=== PATIENT | male | born 1970 | race Caucasian/White ===

== ENCOUNTER 2023-08-03 15:08 | Inpatient (IN) ==
--- NOTE | 2023-08-03 15:20 | Emergency Department Note ---
Impression & Plan Seizure, Acute alcohol intoxication, Acute encephalopathy, Stroke-like symptoms ED Provider Note Name: GWYN SAGE Age: 53 Sex: Male Arrives Via: Ambulance Informant: Brother and EMS. Patient encephalopathic unable to give history ED Provider: Yamil Sullivan MD Chief Complaint: Altered mental status Impression: As per impressions above Medical Decision Makin-year-old gentleman with reportedly no past medical history arrives for evaluation of acute altered mental status. Patient was sitting watching football game at roughly 2:15 PM with brother and friends when he had sudden episode of staring off and altered mental status. Through multiple discussions with brother and those with him it sounds like he had a somewhat syncopal event as he stared off with right-sided weakness and then some twitching of his neck and possibly left upper extremity. EMS arrived and noted patient having seizure-like activity for which she was given 2 rounds of Versed. Patient was quite encephalopathic and at times laughing loudly and route to ER. On my evaluation on his arrival I concern for stroke given complete right-sided flaccidity looking to the left though then did develop beating horizontal nystagmus and slight twitching of the neck muscles and head. He was given IV Ativan 1 mg x [address] scan as a stroke alert. CTs were able to be obtained to take some time though given encephalopathy of patient. On return from CT patient is now moving right arm he continues to be encephalopathic with some slurred speech but is answering some questions. Over the next 2 hours extensive discussions with neurology, radiology, family and reevaluations of patient's were had. During this time patient was able to maintain his airway with some nasal cannula O2 and had no large focal neurologic deficits appreciated following return from CT scan. Unfortunately though given encephalopathy it is very difficult to get a good picture of what exactly underlying NIH score is. Teleneurologist felt that at least discussion of TNK should be had despite unclear if patient truly having stroke. I had a very long and in-depth discussion with the brother as well as [id number] and friend who are at bedside. Following this they feel that they would not want to do TNKase given the risks of bleeding and unclear if he is actually having a stroke. I did mention that I felt that the encephalopathy itself is not due to a stroke given he is intoxicated, has Versed and Ativan on board as well as having received 50 mg IV Benadryl following contrast reaction. They are also aware that there is the possibility that has meds wear off and encephalopathy hopefully improves that a slight deficit could be seen, which at that point would be too late to be considering TNKase. They still would like to avoid thrombolytic given the risks with unclear benefits at this time for this patient. About an hour post CT scan patient broke out in diffuse hives. He is protecting airway there is no evidence of anaphylaxis. He was given IV Benadryl and IV Decadron with good result. Delays: there were several delays to getting CT scan primarily though issue was patient was unable to be still did have seizure-like activity, and required some further IV Ativan just to get scans done. He also had to be tied down to CT just to get a Noncon CT which required several scans just to get a clean view. Furthermore the history was quite difficult to get as well further delaying imaging and processing patient's illness. I am suspicious that the primary issue may have been syncope with seizure due to sitting up though primary seizure difficult to exclude at this time. 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 In the setting of intoxication, IV Versed as well as some sort of insult to the brain from the event he had an encephalopathic reaction. He is not significantly hypertensive. He has no fever and he has no nuchal rigidity based on exam though will note he is encephalopathic. To get LP would require likely intubation given he is unable to stay still and I again do not feel that this is consistent with meningitis or infection at this time. There was discussion of getting an emergent CT MRI. Unfortunately patient is too encephalopathic to stay still and I am very hesitant to further sedate him given his body habitus and already requiring some nasal cannula O2 to keep oxygenated. There was further discussion of intubating him to get MRI however at that point it would be very difficult to see if there is any underlying seizure activity, not precluding we to even be able to get the MRI done in time to be within the window given the multiple other issues going on. Triage/Nursing Notes reviewed by Me Differential:Infection, dehydration, metabolic abnormality, hypo/hyperglycemia, electrolyte disturbance, anemia, hypoxia, cardiac sources, intracerebral event, toxicologic, neurologic, as well as other pathologies. Vital Signs: reviewed and remarkable for no significant abnormalities Interventions: Ativan 1 mg IV x 2, Keppra 40 mg/kg IV, normal saline infusion Labs:ED labs Reviewed by me and remarkable for no significant abnormalities Imaging: CT of the head Noncon as per my informal interpretation Motion degraded. No clear evidence of intracranial hemorrhage or mass effect. Radiologist directly confirms he does not feel there is any underlying bleed though caveat of there is some motion degradation. CT of the head and neck angiography no evidence of acute occlusion or dissection appreciated. EKG:As per my interpretation. Indication stroke symptoms. Normal sinus rhythm 93 bpm QTc 455. There is no ectopy nor ischemia. There are no previous EKGs for comparison. Cardiac/Tele Monitoring: Cardiac Monitoring: An Order was placed for continuous cardiac monitoring. The monitor shows a rate of 90 with a normal sinus rhythm. Consults:Dr Loyd of radiology we specifically discussed scans and findings and symptoms. Stroke neurologist Dr. Perera. [phone] Dr. Bundy of [facility] service evaluated patient recommended for further management Dr. Arguello of [facility] evaled and agree with plan for hospitalization in ICU for close monitoring Plan: Disposition:Hospitalization. Condition: Fair History of Present Illness: 53-year-old gentleman arrives for evaluation of altered mental status. Patient was at the stadium for the [employer] game with family and friends when he developed increasing confusion looking off into the distance and developed sudden onset right arm weakness. Patient slumped over in his chair. EMS contacted. Shortly after EMS arrival patient increasing agitated laughing and altered. He had a episode of altered mental status where his entire body stiffened his eyes went upwards and his head started shaking. He was given 2 mg IV Versed x 2 for this with resolution. Arrives to the ER for further evaluation. Per brother this probably occurred around 2:15 PM. There is no past medical history known about the patient but brother believes he has no significant issues. Past Medical History:According to brother no significant past medical history that he is aware of. Home Medications:No reported daily medications Allergies:No known drug allergies Vitals:Blood Pressure: 127/85, Pulse 98, RR 43, T 36.9C, O2 92% on RA Physical Exam: GENERAL: Patient is altered appearing and in mild distress. Patient laughing confused. RESPIRATORY: No dyspnea. Clear to auscultation and equal bilaterally. CARDIOVASCULAR: Regular rate and rhythm.No murmur appreciated. GASTROINTESTINAL: Abdomen soft, non-tender, no peritonitis. EXTREMITIES: Normal motion all extremities, no cyanosis, no edema. NEUROLOGIC: Altered and encephalopathic. Patient looking to the left with mild horizontal nystagmus noted. Not following commands. Protecting airway. Complete flaccidity of the right arm unable to assess legs is not following command but seems to withdraw to pain is moving left arm. No facial weakness appreciated. Difficult to fully examine cranial nerves SKIN: No rash, no jaundice, no diaphoresis. GCS: 13 -not following commands making grunting noises ED Course: Times/Reassessments: Many repeat evaluations and bedside management of patient throughout his stay. Some malhotra times as below 3:15 PM: Asked by nursing to evaluate patient due to seizure in ambulance. 3:19 PM: I requested stroke alert given history from patient's brother. Delay to getting CT secondary to active patient movement confusion and not following directions and then seizure-like activity vs agitation within CT requiring Ativan 3:31 PM per my read no clear evidence of intracranial hemorrhage though some motion artifact noted. 3:32 [address] agitation [address] CT 1 mg IV Ativan ordered 3:33 PM requested stroke neurology be contacted 3:40 PM patient with another episode of left arm spasm looking to the left and confusion. Given second milligram IV Ativan. And then right arm noted to start working. 3:42 PM stroke neurology responded. Given findings TNKase not indicated however will evaluate for further management 3:48 PM evaluated patient in A1. He is now awake moderately somnolent but able to move all extremities. Questionable paresthesia over the right face. No further seizure-like activity. Responsive. 4:[address] head negative. 4:34 PM Tele Neurologist logged in for evaluation. 4:45 PM teleneurologist requesting discussion with radiologist. Radiologist sent contact info. 4:48 PM radiologist feels this is artifact not any evidence of bleed. 5:12 PM teleneurologist requests I discussed further with family possibly giving patient TNKase. 5:20 PM extensive family discussion and they agree avoiding TNKase after discussing risks, benefits, etc. at length. Critical Care: I have personally spent 150 minutes of critical care time in the direct management of this patient. Acute strokelike symptoms, stroke alert activation, with active seizure requiring management consider of thrombolytics. This was a life/limb threatening event. This 150 minutes is in excess of all separately billable procedures. 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 Beliefs That Will Affect Care: None Current Living Situation: Alone Other Information That Helps Us Care for You: No Feels Safe at Home: Yes Assistive Devices: None Allergies Allergies Allergy/AdvReac Type Severity Reaction Status Date / Time orange Allergy Hives Verified 08/03/23 16:03 Home Meds Home Medications Medication Instructions Recorded Confirmed No Known Home Medications 08/03/23 08/03/23 Results & Data (ED) Vital Signs Vital Signs - 24 hr 08/03/23 15:15 08/03/23 15:18 08/03/23 16:00 Temperature 36.9 C Temperature Source Temporal Artery Scan Pulse Rate 102 H Pulse Rate [Apical] 98 H 87 Pulse Rate from SpO2 Sensor Pulse Rhythm [Apical] Regular Pulse Strength [Apical] Normal Respiratory Rate 22 43 H 28 H Respiratory Effort / Characteristics Non-Labored Spontaneous Non-Labored Spontaneous Non-Labored Respiratory Depth Normal Normal Normal Respiratory Pattern Regular Regular Blood Pressure 127/85 Blood Pressure [Left Arm] 127/85 108/82 Blood Pressure Mean 99 Blood Pressure Mean [Left Arm] 99 90 Blood Pressure Position [Left Arm] Lying Pulse Oximetry 91 92 93 Oxygen Delivery Method Room Air Room Air Nasal Cannula Oxygen Flow Rate 4 Sepsis Recent Fever Within 48 Hours No Sepsis New/Unexplained Change in Mental Status N/A Sepsis Action Taken by Nursing No Action Required 08/03/23 16:10 08/03/23 16:31 08/03/23 17:07 Temperature Temperature Source Pulse Rate 90 86 Pulse Rate [Apical] Pulse Rate from SpO2 Sensor 91 H Pulse Rhythm [Apical] Pulse Strength [Apical] Respiratory Rate 21 Respiratory Effort / Characteristics Respiratory Depth Respiratory Pattern Blood Pressure 114/87 Blood Pressure [Left Arm] Blood Pressure Mean 96 Blood Pressure Mean [Left Arm] Blood Pressure Position [Left Arm] Pulse Oximetry 94 Oxygen Delivery Method Nasal Cannula Nasal Cannula Oxygen Flow Rate 3 2 Sepsis Recent Fever Within 48 Hours Sepsis New/Unexplained Change in Mental Status Sepsis Action Taken by Nursing 08/03/23 17:10 08/03/23 17:21 08/03/23 17:30 Temperature Temperature Source Pulse Rate 79 87 86 Pulse Rate [Apical] Pulse Rate from SpO2 Sensor 79 87 86 Pulse Rhythm [Apical] Pulse Strength [Apical] Respiratory Rate 21 18 21 Respiratory Effort / Characteristics Respiratory Depth Respiratory Pattern Blood Pressure 97/71 L 113/81 134/90 Blood Pressure [Left Arm] Blood Pressure Mean 79 91 104 Blood Pressure Mean [Left Arm] Blood Pressure Position [Left Arm] Pulse Oximetry 98 97 97 Oxygen Delivery Method Nasal Cannula Nasal Cannula Nasal Cannula Oxygen Flow Rate 2 2 2 Sepsis Recent Fever Within 48 Hours Sepsis New/Unexplained Change in Mental Status Sepsis Action Taken by Nursing 08/03/23 18:00 08/03/23 18:00 Temperature Temperature Source Pulse Rate 77 Pulse Rate [Apical] 77 Pulse Rate from SpO2 Sensor 77 Pulse Rhythm [Apical] Pulse Strength [Apical] Respiratory Rate 19 18 Respiratory Effort / Characteristics Non-Labored Spontaneous Respiratory Depth Normal Respiratory Pattern Blood Pressure 94/68 L Blood Pressure [Left Arm] 94/68 L Blood Pressure Mean 76 Blood Pressure Mean [Left Arm] 76 Blood Pressure Position [Left Arm] Semi-fowlers Pulse Oximetry 95 98 Oxygen Delivery Method Room Air Nasal Cannula Oxygen Flow Rate 2 Sepsis Recent Fever Within 48 Hours Sepsis New/Unexplained Change in Mental Status Sepsis Action Taken by Nursing Laboratory Data 08/04/23 09:14 08/04/23 09:14 Lab Results 08/03/23 08/03/23 08/03/23 Range/Units 15:15 15:20 15:20 WBC 5.40 (4.8-10.8) K/ul RBC 5.21 (4.70-6.10) M/uL Hgb 15.3 (14.0-18.0) g/dl POC Hgb (14.0-18.0) g/dl Hct 45.6 (42.0-52.0) % POC Hct (42-52) % MCV 87.5 (80.0-100.0) fL MCH 29.4 (25.0-34.0) pg MCHC 33.6 (32.0-36.0) g/dL RDW Std Deviation 42.7 (36.4-46.3) fL RDW Coeff of Heri 13.3 (11.5-14.5) % Plt Count 303 (130-400) K/uL MPV 9.9 (9.4-12.4) fL Immature Gran % (Auto) 1.1 % Neut % (Auto) 58.9 % Lymph % (Auto) 31.3 % [place] % (Auto) 5.6 % Eos % (Auto) 2.0 % Baso % (Auto) 1.1 % Neut # (Auto) 3.18 (1.40-6.50) K/uL Lymph # (Auto) 1.69 (1.20-3.40) K/uL [place] # (Auto) 0.30 (0.11-0.59) K/uL Eos # (Auto) 0.11 (0.00-0.50) K/uL Baso # (Auto) 0.06 (0.00-0.20) K/uL Immature Gran # (Auto) 0.06 (0.01-0.20) K/uL PT INR APTT PTT Ratio POC Sodium (135-144) mmol/L Sodium 142 (136-145) mmol/L POC Potassium (3.3-5.0) mmol/L Potassium 4.7 (3.5-5.1) mmol/L POC Chloride (101-112) mmol/L Chloride 109 H (98-107) mmol/L Carbon Dioxide 25 (21-32) mmol/L POC Total CO2 (24-31) mmol/L Anion Gap 8 (3-11) POC Anion Gap (16-25) mmol/L POC BUN (7-18) mg/dl BUN 12 (6-23) mg/dl Creatinine 0.93 (0.6-1.4) mg/dl POC Creatinine (0.6-1.3) mg/dl Est Cr Clr Drug Dosing 106.2 ml/min Est GFR ( Amer) 109.8 ml/min Est GFR (Non-Af Amer) 94.7 ml/min BUN/Creatinine Ratio 12.9 (10-20) Glucose 106 H (70-99(Fasting)) mg/dl POC Glucose 102 H (70-99) mg/dl POC Glucose (other) (70-99) mg/dl Calcium 8.8 (8.6-10.3) mg/dl POC Ioniz Calcium Srini (1.12-1.32) mmol/l Magnesium 2.3 (1.7-2.4) mg/dl Total Bilirubin 0.3 (0.2-1.0) mg/dl AST 22 (13-39) U/L ALT 25 (7-52) U/L Alkaline Phosphatase 84 (34-104) U/L Troponin I High Sens 3.5 (0-20) pg/ml Total Protein 7.2 (6.0-8.3) gm/dl Albumin 4.5 (3.4-5.0) gm/dl Globulin 2.7 (2.5-4.0) gm/dl Albumin/Globulin Ratio 1.7 (0.9-2) Prolactin Cancelled 20.72 Urine Color Urine Appearance (Clear) Urine pH (4.5-7.5) Ur Specific [place] (1.000-1.030) Urine Protein (Negative) Urine Glucose (UA) (Negative) Urine Ketones (Negative) Urine Blood (Negative) Urine Nitrite (Negative) Urine Bilirubin (Negative) Urine Urobilinogen (Negative) Ur Leukocyte Esterase (Negative) Urine Opiates Screen (Neg) Ur Methadone, Qual (Neg) Urine Barbiturates (Neg) Ur Phencyclidine (PCP) (Neg) U Amphetamin/Meth Scrn (Neg) MDMA (Ecstasy) Screen (Neg) U Benzodiazepines Scrn (Neg) Ur Cocaine Metabolite (Neg) U Marijuana (THC) Screen (Neg) Ethyl Alcohol mg/dL 250.2 H (<10.0) mg/dl Blood Type Antibody Screen 08/03/23 08/03/23 08/03/23 Range/Units 15:24 15:25 16:11 WBC (4.8-10.8) K/ul RBC (4.70-6.10) M/uL Hgb (14.0-18.0) g/dl POC Hgb 15.0 (14.0-18.0) g/dl Hct (42.0-52.0) % POC Hct 44 (42-52) % MCV (80.0-100.0) fL MCH (25.0-34.0) pg MCHC (32.0-36.0) g/dL RDW Std Deviation (36.4-46.3) fL RDW Coeff of Heri (11.5-14.5) % Plt Count (130-400) K/uL MPV (9.4-12.4) fL Immature Gran % (Auto) % Neut % (Auto) % Lymph % (Auto) % [place] % (Auto) % Eos % (Auto) % Baso % (Auto) % Neut # (Auto) (1.40-6.50) K/uL Lymph # (Auto) (1.20-3.40) K/uL [place] # (Auto) (0.11-0.59) K/uL Eos # (Auto) (0.00-0.50) K/uL Baso # (Auto) (0.00-0.20) K/uL Immature Gran # (Auto) (0.01-0.20) K/uL PT Cancelled INR Cancelled APTT Cancelled PTT Ratio Cancelled POC Sodium 143 (135-144) mmol/L Sodium (136-145) mmol/L POC Potassium 4.8 (3.3-5.0) mmol/L Potassium (3.5-5.1) mmol/L POC Chloride 108 (101-112) mmol/L Chloride (98-107) mmol/L Carbon Dioxide (21-32) mmol/L POC Total CO2 25 (24-31) mmol/L Anion Gap (3-11) POC Anion Gap 16.0 (16-25) mmol/L POC BUN 13 (7-18) mg/dl BUN (6-23) mg/dl Creatinine (0.6-1.4) mg/dl POC Creatinine 1.4 H (0.6-1.3) mg/dl Est Cr Clr Drug Dosing ml/min Est GFR ( Amer) ml/min Est GFR (Non-Af Amer) ml/min BUN/Creatinine Ratio (10-20) Glucose (70-99(Fasting)) mg/dl POC Glucose (70-99) mg/dl POC Glucose (other) 104 H (70-99) mg/dl Calcium (8.6-10.3) mg/dl POC Ioniz Calcium Srini 0.96 L (1.12-1.32) mmol/l Magnesium (1.7-2.4) mg/dl Total Bilirubin (0.2-1.0) mg/dl AST (13-39) U/L ALT (7-52) U/L Alkaline Phosphatase (34-104) U/L Troponin I High Sens (0-20) pg/ml Total Protein (6.0-8.3) gm/dl Albumin (3.4-5.0) gm/dl Globulin (2.5-4.0) gm/dl Albumin/Globulin Ratio (0.9-2) Prolactin Urine Color Yellow Urine Appearance Clear (Clear) Urine pH 6.0 (4.5-7.5) Ur Specific [place] 1.024 (1.000-1.030) Urine Protein Negative (Negative) Urine Glucose (UA) Negative (Negative) Urine Ketones Negative (Negative) Urine Blood Negative (Negative) Urine Nitrite Negative (Negative) Urine Bilirubin Negative (Negative) Urine Urobilinogen Negative (Negative) Ur Leukocyte Esterase Negative (Negative) Urine Opiates Screen Neg (Neg) Ur Methadone, Qual Neg (Neg) Urine Barbiturates Neg (Neg) Ur Phencyclidine (PCP) Neg (Neg) U Amphetamin/Meth Scrn Neg (Neg) MDMA (Ecstasy) Screen Neg (Neg) U Benzodiazepines Scrn Pos H (Neg) Ur Cocaine Metabolite Neg (Neg) U Marijuana (THC) Screen Neg (Neg) Ethyl Alcohol mg/dL (<10.0) mg/dl Blood Type A Positive Antibody Screen NEGATIVE 08/03/23 Range/Units 17:20 WBC (4.8-10.8) K/ul RBC (4.70-6.10) M/uL Hgb (14.0-18.0) g/dl POC Hgb (14.0-18.0) g/dl Hct (42.0-52.0) % POC Hct (42-52) % MCV (80.0-100.0) fL MCH (25.0-34.0) pg MCHC (32.0-36.0) g/dL RDW Std Deviation (36.4-46.3) fL RDW Coeff of Heri (11.5-14.5) % Plt Count (130-400) K/uL MPV (9.4-12.4) fL Immature Gran % (Auto) % Neut % (Auto) % Lymph % (Auto) % [place] % (Auto) % Eos % (Auto) % Baso % (Auto) % Neut # (Auto) (1.40-6.50) K/uL Lymph # (Auto) (1.20-3.40) K/uL [place] # (Auto) (0.11-0.59) K/uL Eos # (Auto) (0.00-0.50) K/uL Baso # (Auto) (0.00-0.20) K/uL Immature Gran # (Auto) (0.01-0.20) K/uL PT 10.5 INR 1.0 APTT 27 PTT Ratio 1.0 POC Sodium (135-144) mmol/L Sodium (136-145) mmol/L POC Potassium (3.3-5.0) mmol/L Potassium (3.5-5.1) mmol/L POC Chloride (101-112) mmol/L Chloride (98-107) mmol/L Carbon Dioxide (21-32) mmol/L POC Total CO2 (24-31) mmol/L Anion Gap (3-11) POC Anion Gap (16-25) mmol/L POC BUN (7-18) mg/dl BUN (6-23) mg/dl Creatinine (0.6-1.4) mg/dl POC Creatinine (0.6-1.3) mg/dl Est Cr Clr Drug Dosing ml/min Est GFR ( Amer) ml/min Est GFR (Non-Af Amer) ml/min BUN/Creatinine Ratio (10-20) Glucose (70-99(Fasting)) mg/dl POC Glucose (70-99) mg/dl POC Glucose (other) (70-99) mg/dl Calcium (8.6-10.3) mg/dl POC Ioniz Calcium Srini (1.12-1.32) mmol/l Magnesium (1.7-2.4) mg/dl Total Bilirubin (0.2-1.0) mg/dl AST (13-39) U/L ALT (7-52) U/L Alkaline Phosphatase (34-104) U/L Troponin I High Sens (0-20) pg/ml Total Protein (6.0-8.3) gm/dl Albumin (3.4-5.0) gm/dl Globulin (2.5-4.0) gm/dl Albumin/Globulin Ratio (0.9-2) Prolactin Urine Color Urine Appearance (Clear) Urine pH (4.5-7.5) Ur Specific [place] (1.000-1.030) Urine Protein (Negative) Urine Glucose (UA) (Negative) Urine Ketones (Negative) Urine Blood (Negative) Urine Nitrite (Negative) Urine Bilirubin (Negative) Urine Urobilinogen (Negative) Ur Leukocyte Esterase (Negative) Urine Opiates Screen (Neg) Ur Methadone, Qual (Neg) Urine Barbiturates (Neg) Ur Phencyclidine (PCP) (Neg) U Amphetamin/Meth Scrn (Neg) MDMA (Ecstasy) Screen (Neg) U Benzodiazepines Scrn (Neg) Ur Cocaine Metabolite (Neg) U Marijuana (THC) Screen (Neg) Ethyl Alcohol mg/dL (<10.0) mg/dl Blood Type Antibody Screen Administered Medications Aspirin (Aspirin 81 Mg Ectab) 81 mg PO DAILY JARON Stop: 09/03/23 08:59 Last Admin: 08/04/23 09:53 Dose: 81 mg Documented By: FRED Lactated Ringer's (Lr) 1,000 mls @ 80 mls/hr IV .[id number] JARON Stop: 09/02/23 19:55 Last Admin: 08/04/23 18:31 Dose: 80 mls/hr Documented By: Infusion: 08/04/23 18:31 Dose: Infused Documented By: Admin: 08/04/23 15:35 Dose: 80 mls/hr Documented By: Infusion: 08/04/23 12:55 Dose: Infused Documented By: Admin: 08/04/23 04:55 Dose: 125 mls/hr Documented By: Infusion: 08/04/23 04:53 Dose: Infused Documented By: Admin: 08/03/23 20:53 Dose: 125 mls/hr Documented By: SHALINI Lorazepam 2 mg/ Syringe 2 mls @ 2 mls/min IV Q5M PRN PRN Reason: seizure Last Admin: 08/03/23 22:59 Dose: 2 mls/min Documented By: SHALINI Levetiracetam 1,000 mg/ Sodium (Chloride) 110 mls @ 420 mls/hr IV Q12H JARON Stop: 09/03/23 08:59 Last Infusion: 08/04/23 10:15 Dose: Infused Documented By: Admin: 08/04/23 09:53 Dose: 420 mls/hr Documented By: FRED Miscellaneous (Icu Protocol For Hyperglycemia) 1 each N/A ACHS JARON Stop: 08/05/23 20:59 Last Admin: 08/04/23 16:56 Dose: Not Given Documented By: Admin: 08/04/23 13:34 Dose: Not Given Documented By: Admin: 08/04/23 07:52 Dose: 1 each Documented By: Admin: 08/03/23 20:53 Dose: Not Given Documented By: CF Discontinued Medications Dexamethasone Sodium Phosphate (DexamethasonePf 10 Mg/Ml Vial) 10 mg IV NOW ONE Stop: 08/03/23 16:26 Last Admin: 08/03/23 16:31 Dose: 10 mg Documented By: ASIM Diphenhydramine HCl (Diphenhydramine 50 Mg/Ml Vial) 50 mg IV NOW STA Stop: 08/03/23 16:26 Last Admin: 08/03/23 16:30 Dose: 50 mg Documented By: ASIM Gadobutrol (Gadobutrol 30ml Vial) 10 ml IV ONCE ONE Stop: 08/04/23 11:09 Last Admin: 08/04/23 11:09 Dose: 10 ml Documented By: JULY Sodium Chloride (Nss) 1,000 mls @ 200 mls/hr IV .Q5H JARON Stop: 09/02/23 16:14 Last Infusion: 08/03/23 20:47 Dose: Infused Documented By: Admin: 08/03/23 16:32 Dose: 200 mls/hr Documented By: ASIM Ioversol (Optiray 320 125ml) 118 ml IV ONCE ONE Stop: 08/03/23 15:40 Last Admin: 08/03/23 15:39 Dose: 118 ml Documented By: PETER Levetiracetam (Levetiracetam 500 Mg/5 Ml Vial) 3,700 mg 40 mg/kg (3700 mg) IV NOW STA Stop: 08/03/23 15:47 Last Admin: 08/03/23 15:56 Dose: 3,700 mg Documented By: ASIM Lorazepam (Lorazepam 1 Mg/1 Ml Syr Ed Inj Use) Confirm Administered Dose 1 mg .ROUTE .STK-MED ONE Stop: 08/03/23 15:31 Last Admin: 08/03/23 17:15 Dose: 1 mg Documented By: ASIM Lorazepam (Lorazepam 1 Mg/1 Ml Syr Ed Inj Use) Confirm Administered Dose 1 mg .ROUTE .STK-MED ONE Stop: 08/03/23 15:41 Last Admin: 08/03/23 15:47 Dose: 1 mg Documented By: ASIM Imaging Data Radiologist's Impression: Head CT 08/03/23 15:19 CT angio head w con, CT angio neck with con, CT head/brain wo con CLINICAL HISTORY: 53 years-old Male with neuro deficit, acute stroke suspected. Acute strokelike symptoms. Acute right arm weakness with altered mental status and seizure. COMPARISON STUDY: None TECHNIQUE: Unenhanced axial CT scan of the brain is performed. Subsequently, following the IV administration of 118 cc of Optiray, CT angiogram of the head and neck was performed from the aortic arch and the skull apex. Images are reviewed in the axial, sagittal, and coronal planes. 3-D MIPS images are created and assessed. IV contrast was administered without complication. All measurements were obtained according to NASCET criteria. A dose lowering technique was utilized adhering to the principles of ALARA. CT DOSE: 2861.48 mGy.cm FINDINGS: CT BRAIN: There is no acute intracranial hemorrhage, midline shift, hydrocephalus, intracranial mass, territorial ischemia or abnormal extra-axial collections. Limited exam secondary to positioning and motion artifact. No abnormal intra- axial or extra-axial enhancement. Mastoid air cells and middle ear cavities are clear. No calvarial fracture. Mild mucosal thickening of the ethmoid sinuses and nasal turbinates. CT ANGIOGRAM OF THE HEAD AND NECK: Three-vessel morphology of the thoracic aortic arch. Patency of the innominate and image subclavian arteries. The common and internal carotid arteries are widely patent. Tortuosity of the patent internal carotid arteries. The bilateral anterior and middle cerebral arteries are also patent. The vertebrobasilar system and posterior cerebral arteries are widely patent. There is no aneurysm, high-grade stenosis, or proximal branch occlusion identified. Dural sinuses appear patent. Lung apices are clear. No pneumothorax. Unremarkable soft tissues. IMPRESSION: 1. Motion degraded exam. 2. No acute intracranial abnormality identified. 3. Unremarkable CTA of the head and neck. ACT 112: Negative or not required by law. The above report was generated using voice recognition software. It may contain grammatical, syntax or spelling errors. Electronically signed by: Lauro Loyd M.D. 08/03/2023 4:03 PM Head CTA 08/03/23 15:19 CT angio head w con, CT angio neck with con, CT head/brain wo con CLINICAL HISTORY: 53 years-old Male with neuro deficit, acute stroke suspected. Acute strokelike symptoms. Acute right arm weakness with altered mental status and seizure. COMPARISON STUDY: None TECHNIQUE: Unenhanced axial CT scan of the brain is performed. Subsequently, following the IV administration of 118 cc of Optiray, CT angiogram of the head and neck was performed from the aortic arch and the skull apex. Images are reviewed in the axial, sagittal, and coronal planes. 3-D MIPS images are created and assessed. IV contrast was administered without complication. All measurements were obtained according to NASCET criteria. A dose lowering technique was utilized adhering to the principles of ALARA. CT DOSE: 2861.48 mGy.cm FINDINGS: CT BRAIN: There is no acute intracranial hemorrhage, midline shift, hydrocephalus, intracranial mass, territorial ischemia or abnormal extra-axial collections. Limited exam secondary to positioning and motion artifact. No abnormal intra- axial or extra-axial enhancement. Mastoid air cells and middle ear cavities are clear. No calvarial fracture. Mild mucosal thickening of the ethmoid sinuses and nasal turbinates. CT ANGIOGRAM OF THE HEAD AND NECK: Three-vessel morphology of the thoracic aortic arch. Patency of the innominate and image subclavian arteries. The common and internal carotid arteries are widely patent. Tortuosity of the patent internal carotid arteries. The bilateral anterior and middle cerebral arteries are also patent. The vertebrobasilar system and posterior cerebral arteries are widely patent. There is no aneurysm, high-grade stenosis, or proximal branch occlusion identified. Dural sinuses appear patent. Lung apices are clear. No pneumothorax. Unremarkable soft tissues. IMPRESSION: 1. Motion degraded exam. 2. No acute intracranial abnormality identified. 3. Unremarkable CTA of the head and neck. ACT 112: Negative or not required by law. The above report was generated using voice recognition software. It may contain grammatical, syntax or spelling errors. Electronically signed by: Lauro Loyd M.D. 08/03/2023 4:03 PM Neck CTA 08/03/23 15:19 CT angio head w con, CT angio neck with con, CT head/brain wo con CLINICAL HISTORY: 53 years-old Male with neuro deficit, acute stroke suspected. Acute strokelike symptoms. Acute right arm weakness with altered mental status and seizure. COMPARISON STUDY: None TECHNIQUE: Unenhanced axial CT scan of the brain is performed. Subsequently, following the IV administration of 118 cc of Optiray, CT angiogram of the head and neck was performed from the aortic arch and the skull apex. Images are reviewed in the axial, sagittal, and coronal planes. 3-D MIPS images are created and assessed. IV contrast was administered without complication. All measurements were obtained according to NASCET criteria. A dose lowering technique was utilized adhering to the principles of ALARA. CT DOSE: 2861.48 mGy.cm FINDINGS: CT BRAIN: There is no acute intracranial hemorrhage, midline shift, hydrocephalus, intracranial mass, territorial ischemia or abnormal extra-axial collections. Limited exam secondary to positioning and motion artifact. No abnormal intra- axial or extra-axial enhancement. Mastoid air cells and middle ear cavities are clear. No calvarial fracture. Mild mucosal thickening of the ethmoid sinuses and nasal turbinates. CT ANGIOGRAM OF THE HEAD AND NECK: Three-vessel morphology of the thoracic aortic arch. Patency of the innominate and image subclavian arteries. The common and internal carotid arteries are widely patent. Tortuosity of the patent internal carotid arteries. The bilateral anterior and middle cerebral arteries are also patent. The vertebrobasilar system and posterior cerebral arteries are widely patent. There is no aneurysm, high-grade stenosis, or proximal branch occlusion identified. Dural sinuses appear patent. Lung apices are clear. No pneumothorax. Unremarkable soft tissues. IMPRESSION: 1. Motion degraded exam. 2. No acute intracranial abnormality identified. 3. Unremarkable CTA of the head and neck. ACT 112: Negative or not required by law. The above report was generated using voice recognition software. It may contain grammatical, syntax or spelling errors. Electronically signed by: Lauro Loyd M.D. 08/03/2023 4:03 PM Discharge Plan Visit Data Chief Complaint: Seizure Stated Complaint: SEIZURE, WEAKNESS, AMS ED Provider: Yamil Sullivan Discharge Problem: Seizure, Acute alcohol intoxication, Acute encephalopathy, Stroke-like symptoms Patient Disposition: Admitted As Inpatient Discharge Instructions Interventions: ED Discharge Assessment Last Done: 08/03/23 19:39
[2023-08-03 15:37] LABS: iSTAT Creatinine 1.4 mg/dl (0.6-1.3); iSTAT Ionized Calcium 0.96 mmol/l (1.12-1.32); iSTAT Potassium 4.8 mmol/L (3.3-5.0)
[2023-08-03] MEDS: OPTIRAY 320 125ml IV ONE (15:39)
[2023-08-03] MEDS: LORazepam 1 MG/1 ML SYR ED Inj Use ONE ×2 (15:47→17:15)
[2023-08-03 15:48] LABS: Hematocrit (blood only) 45.6 % (42.0-52.0); Hemoglobin 15.3 g/dl (14.0-18.0); Mean Corpuscular Hemoglobin 29.4 pg (25.0-34.0); Mean Corpuscular Hgb Conc 33.6 g/dL (32.0-36.0); Mean Corpuscular Volume 87.5 fL (80.0-100.0); Mean Platelet Volume 9.9 fL (9.4-12.4); Platelet Count 303 K/uL (130-400); RDW Coefficient of Variation 13.3 % (11.5-14.5); RDW Standard Deviation 42.7 fL (36.4-46.3); Red Blood Count 5.21 M/uL (4.70-6.10)
[2023-08-03] MEDS: levETIRAcetam 500 MG/5 ML VIAL IV STA (15:56)
[2023-08-03 15:57] LABS: Basophils # (auto) 0.06 K/uL (0.00-0.20); Basophils % (auto) 1.1 %; Eosinophils # (auto) 0.11 K/uL (0.00-0.50); Immature Granulocytes # (auto) 0.06 K/uL (0.01-0.20); Immature Granulocytes % (auto) 1.1 %; Lymphocytes # (auto) 1.69 K/uL (1.20-3.40); Lymphocytes % (auto) 31.3 %; Monocytes % (auto) 5.6 %; Neutrophils # (auto) 3.18 K/uL (1.40-6.50); Neutrophils % (auto) 58.9 %
[2023-08-03 15:59] LABS: Albumin Level 4.5 gm/dl (3.4-5.0); Bilirubin,Total 0.3 mg/dl (0.2-1.0); Calcium 8.8 mg/dl (8.6-10.3); Magnesium 2.3 mg/dl (1.7-2.4); Potassium 4.7 mmol/L (3.5-5.1)
[2023-08-03 16:01] LABS: Troponin I High Sensitivity 3.5 pg/ml (0-20)
[2023-08-03 16:05] LABS: Albumin Globulin Ratio 1.7 (0.9-2); BUN Creatinine Ratio 12.9 (10-20); Creatinine Clr Calc Pharmacy 106.2 ml/min; Est GFR (African American) 109.8 ml/min; Est GFR (Non-African American) 94.7 ml/min; Globulin 2.7 gm/dl (2.5-4.0); Total Protein 7.2 gm/dl (6.0-8.3)
--- NOTE | 2023-08-03 16:05 | CT Scan Report ---
CT angio head w con, CT angio neck with con, CT head/brain wo con CLINICAL HISTORY: 53 years-old Male with neuro deficit, acute stroke suspected. Acute strokelike s ymptoms. Acute right arm weakness with altered mental status and seizure. COMPARISON STUDY: None TECHNIQUE: Unenhanced axial CT scan of the brain is performed. Subsequently, following the IV adminis tration of 118 cc of Optiray, CT angiogram of the head and neck was performed from the aortic arch an d the skull apex. Images are reviewed in the axial, sagittal, and coronal planes. 3-D MIPS images are created and assessed. IV contrast was administered without complication. All measurements were obtai nitesh according to NASCET criteria. A dose lowering technique was utilized adhering to the principles o f ALARA. CT DOSE: 2861.48 mGy.cm FINDINGS: CT BRAIN: There is no acute intracranial hemorrhage, midline shift, hydrocephalus, intracranial mass, territori al ischemia or abnormal extra-axial collections. Limited exam secondary to positioning and motion art ifact. No abnormal intra-axial or extra-axial enhancement. Mastoid air cells and middle ear cavities are clear. No calvarial fracture. Mild mucosal thickening of the ethmoid sinuses and nasal turbinate s. CT ANGIOGRAM OF THE HEAD AND NECK: Three-vessel morphology of the thoracic aortic arch. Patency of the innominate and image subclavian a rteries. The common and internal carotid arteries are widely patent. Tortuosity of the patent interna l carotid arteries. The bilateral anterior and middle cerebral arteries are also patent. The vertebro basilar system and posterior cerebral arteries are widely patent. There is no aneurysm, high-grade st enosis, or proximal branch occlusion identified. Dural sinuses appear patent. Lung apices are clear. No pneumothorax. Unremarkable soft tissues. IMPRESSION: 1. Motion degraded exam. 2. No acute intracranial abnormality identified. 3. Unremarkable CTA of the head and neck. ACT 112: Negative or not required by law. The above report was generated using voice recognition software. It may contain grammatical, syntax o r spelling errors. Electronically signed by: Lauro Loyd M.D. 08/03/2023 4:03 PM
[2023-08-03] MEDS: diphenhydrAMINE 50 MG/ML VIAL IV STA (16:30)
[2023-08-03] MEDS: dexAMETHasone**PF** 10 MG/ML VIAL IV ONE (16:31)
[2023-08-03] MEDS: SODIUM CHLORIDE 0.9% 1,000 ML IV SCH (16:32)
[2023-08-03 16:42] LABS: Appearance Urine Clear (Clear); Bilirubin Urine Negative (Negative); Blood Urine Negative (Negative); Color Urine Yellow; Glucose Urine UA Negative (Negative); Ketones Urine Negative (Negative); Leukocyte Esterase Urine Negative (Negative); Nitrite Urine Negative (Negative); Protein Urine Negative (Negative); Specific Gravity Urine 1.024 (1.000-1.030); Urobilinogen Urine Negative (Negative)
[2023-08-03 17:11] LABS: Amphetamines+Metham, Urine Neg (Neg); Barbiturates, Urine Neg (Neg); Benzodiazepine, Urine Pos (Neg); Cocaine, Urine Neg (Neg); MDMA (Ecstacy), Urine Neg (Neg); Marijuana, Urine Neg (Neg); Methadone, Urine Neg (Neg); Opiate, Urine Neg (Neg); Phencyclidine, Urine Neg (Neg)
--- NOTE | 2023-08-03 18:04 | Critical Care Consultation ---
Date of Consultation August 03, 2023 Assessment & Plan (1) Seizure: Reason Critically Ill: 53-year-old male with new onset seizure with postictal Pacheco's paralysis which has resolved and acute alcohol intoxication PLAN: Neuro: Seizure-like activity Pacheco's paralysis and postictal state: Resolved -Neurology consult -Loaded with Keppra: Continue -Will require MRI, patient disoriented and not entirely redirectable to allow for optimal MRI images -Highly unlikely to represent CVA however MRI may assist in differentiating seizure versus CVA we will attempt to obtain as soon as patient can become compliant -No indication for stat escalation of care of intubation to obtain neuroimaging at this time -Patient from [facility] will require sulky driver's license notification deferring to neurology team CV: Monitor on telemetry Fluids/Renal: Continue maintenance fluids ID: No indication for anti-infectives GI/Nutrition: Regular diet as tolerated Heme: DVT prophylaxis: Anticipate patient will be ambulatory in short., Chemical prophylaxis contraindicated as if there is any need for lumbar puncture I feel the risks of pharmacologic DVT prophylaxis outweigh benefits Endocrine: ICU hyperglycemia protocol Vascular access: Peripheral IV Code Status: Full code Disposition: ICU for close monitoring/nursing care (2) Acute alcohol intoxication: (3) Acute encephalopathy: (4) Pacheco's paralysis: History of Present Illness Reason for Consultation: Jeromy Sullivan History of Present Illness Briefly patient is a 53-year-old male who is from out of town in the area for the local [employer] football game who was in his normal state of health, the patient had consumed alcohol during the football game. Family and friends noted that the patient appeared to develop increasing confusion and then suddenly developed sudden right-sided arm weakness slumped over in his chair. EMS was contacted and [place] to the emergency department. During that timeframe the patient's mental status had improved and he became increasingly agitated laughing and altered. During his evaluation in the emergency department which was billed as a possible stroke alert the patient underwent CT scanning and had another episode of altered mental status with rigid body which subsequently resolved. Patient underwent CTA of the head and neck and subsequently developed hives and was administered Benadryl for a possible iodine reaction. There was extensive discussion between the emergency department and stroke neurology regarding possibility of patient being administered TNK for possible CVA. Additionally there was extensive discussion between neurology and radiology regarding the CT scan which prompted a repeat scan given motion artifact. During my evaluation the patient is disoriented and cognitively slow able to fixate on me but not answer questions. His brother is at the bedside assisting in keeping him calm. The patient is able to move all 4 extremities he is able to squeeze and follow commands. There is no prior history of seizure disorder. No reported history of trauma Treatment course up to this point he had received multiple doses of benzodiazepines loaded with Keppra administered Benadryl. Allergies Allergy/AdvReac Type Severity Reaction Status Date / Time orange Allergy Hives Verified 08/03/23 16:03 Home Medications Medication Instructions Recorded Confirmed Type No Known Home Medications 08/03/23 08/03/23 History Patient History Social History Smoking Status: Unknown if ever smoked Feels Safe at Home: Yes Review of Systems Review of Systems: Unobtainable due to cognitive status Physical Exam Physical Exam: General: Alert. Glascow Coma Scale: Eyes: 4, Verbal 4, Motor 5, Total 13 Skin: Warm, dry, Head: Atraumatic Ears, nose, mouth and throat: airway patent Cardiovascular: Normal peripheral perfusion Respiratory: no respiratory distress Gastrointestinal: Non distended Musculoskeletal: No deformity Neuro: No obvious/gross deficit appearance of the face, moving all 4 extremities equally. Results & Data Results & Data Vital Signs (Past 12 Hours) Vital Signs Temp Pulse Pulse Resp BP BP Pulse Ox 08/03/23 17:30 86 21 134/90 97 08/03/23 17:21 87 18 113/81 97 08/03/23 17:10 79 21 97/71 L 98 08/03/23 17:07 86 08/03/23 16:31 90 21 114/87 94 08/03/23 16:10 08/03/23 16:00 87 28 H 108/82 93 08/03/23 15:18 98 H 43 H 127/85 92 08/03/23 15:15 36.9 C 102 H 22 127/85 91 O2 Del Method O2 Flow Rate 08/03/23 17:30 Room Air 100 08/03/23 17:21 Room Air 99 08/03/23 17:10 Room Air 99 08/03/23 17:07 08/03/23 16:31 Nasal Cannula 99 08/03/23 16:10 Nasal Cannula 3 08/03/23 16:00 Nasal Cannula 4 08/03/23 15:18 Room Air 08/03/23 15:15 Room Air Critical Care Results & Data Vital Signs (Past 12 Hours) Vital Signs Temp Pulse Pulse Resp BP BP Pulse Ox 08/03/23 17:30 86 21 134/90 97 08/03/23 17:21 87 18 113/81 97 08/03/23 17:10 79 21 97/71 L 98 08/03/23 17:07 86 08/03/23 16:31 90 21 114/87 94 08/03/23 16:10 08/03/23 16:00 87 28 H 108/82 93 08/03/23 15:18 98 H 43 H 127/85 92 08/03/23 15:15 36.9 C 102 H 22 127/85 91 O2 Del Method O2 Flow Rate 08/03/23 17:30 Room Air 100 08/03/23 17:21 Room Air 99 08/03/23 17:10 Room Air 99 08/03/23 17:07 08/03/23 16:31 Nasal Cannula 99 08/03/23 16:10 Nasal Cannula 3 08/03/23 16:00 Nasal Cannula 4 08/03/23 15:18 Room Air 08/03/23 15:15 Room Air Lab & Micro Results (Past 24 Hours) RBC 5.21 M/uL (4.70-6.10) 08/03/23 WBC 5.40 K/ul (4.8-10.8) 08/03/23 Hgb 15.3 g/dl (14.0-18.0) 08/03/23 Hct 45.6 % (42.0-52.0) 08/03/23 MCV 87.5 fL (80.0-100.0) 08/03/23 MCH 29.4 pg (25.0-34.0) 08/03/23 MCHC 33.6 g/dL (32.0-36.0) 08/03/23 RDW Standard Deviation 42.7 fL (36.4-46.3) 08/03/23 RDW Coefficient of Variation 13.3 % (11.5-14.5) 08/03/23 Plt Count 303 K/uL (130-400) 08/03/23 MPV 9.9 fL (9.4-12.4) 08/03/23 Neutrophils (%) (Auto) 58.9 % 08/03/23 Lymphocytes (%) (Auto) 31.3 % 08/03/23 Monocytes # (Auto) 0.30 K/uL (0.11-0.59) 08/03/23 Eosinophils # (Auto) 0.11 K/uL (0.00-0.50) 08/03/23 Immature Granulocyte % (Auto) 1.1 % 08/03/23 Neutrophils # (Auto) 3.18 K/uL (1.40-6.50) 08/03/23 Lymphocytes # (Auto) 1.69 K/uL (1.20-3.40) 08/03/23 Monocytes # (Auto) 0.30 K/uL (0.11-0.59) 08/03/23 Eosinophils # (Auto) 0.11 K/uL (0.00-0.50) 08/03/23 Basophils # (Auto) 0.06 K/uL (0.00-0.20) 08/03/23 Immature Granulocyte # (Auto) 0.06 K/uL (0.01-0.20) 4 Na 142 mmol/L (136-145) 08/03/23 K 4.7 mmol/L (3.5-5.1) 08/03/23 Cl 109 mmol/L (98-107) H 08/03/23 CO2 25 mmol/L (21-32) 08/03/23 Anion Gap 8 (3-11) 08/03/23 BUN 12 mg/dl (6-23) 08/03/23 Creatinine 0.93 mg/dl (0.6-1.4) 08/03/23 Estimated GFR ( Amer) 109.8 ml/min 08/03/23 Estimated GFR (Non-Af Amer) 94.7 ml/min 08/03/23 BUN/Creatinine Ratio 12.9 (10-20) 08/03/23 Glu 106 mg/dl (70-99(Fasting)) H 08/03/23 Ca 8.8 mg/dl (8.6-10.3) 08/03/23 Total Bilirubin 0.3 mg/dl (0.2-1.0) 08/03/23 AST 22 U/L (13-39) 08/03/23 ALT 25 U/L (7-52) 08/03/23 Alkaline Phosphatase 84 U/L (34-104) 08/03/23 TP 7.2 gm/dl (6.0-8.3) 08/03/23 Albumin 4.5 gm/dl (3.4-5.0) 08/03/23 Globulin 2.7 gm/dl (2.5-4.0) 08/03/23 Albumin/Globulin Ratio 1.7 (0.9-2) 08/03/23 Mg 2.3 mg/dl (1.7-2.4) 08/03/23 15:20 Calcium Level 8.8 mg/dl (8.6-10.3) 08/03/23 15:20 Prothromb Time International Ratio Pending 08/03/23 17:2 0 Diagnostic Findings (Past 24 Hours) Head CT 08/03/23 15:19 CT angio head w con, CT angio neck with con, CT head/brain wo con CLINICAL HISTORY: 53 years-old Male with neuro deficit, acute stroke suspected. Acute strokelike symptoms. Acute right arm weakness with altered mental status and seizure. COMPARISON STUDY: None TECHNIQUE: Unenhanced axial CT scan of the brain is performed. Subsequently, following the IV administration of 118 cc of Optiray, CT angiogram of the head and neck was performed from the aortic arch and the skull apex. Images are reviewed in the axial, sagittal, and coronal planes. 3-D MIPS images are created and assessed. IV contrast was administered without complication. All measurements were obtained according to NASCET criteria. A dose lowering technique was utilized adhering to the principles of ALARA. CT DOSE: 2861.48 mGy.cm FINDINGS: CT BRAIN: There is no acute intracranial hemorrhage, midline shift, hydrocephalus, intracranial mass, territorial ischemia or abnormal extra-axial collections. Limited exam secondary to positioning and motion artifact. No abnormal intra- axial or extra-axial enhancement. Mastoid air cells and middle ear cavities are clear. No calvarial fracture. Mild mucosal thickening of the ethmoid sinuses and nasal turbinates. CT ANGIOGRAM OF THE HEAD AND NECK: Three-vessel morphology of the thoracic aortic arch. Patency of the innominate and image subclavian arteries. The common and internal carotid arteries are widely patent. Tortuosity of the patent internal carotid arteries. The bilateral anterior and middle cerebral arteries are also patent. The vertebrobasilar system and posterior cerebral arteries are widely patent. There is no aneurysm, high-grade stenosis, or proximal branch occlusion identified. Dural sinuses appear patent. Lung apices are clear. No pneumothorax. Unremarkable soft tissues. IMPRESSION: 1. Motion degraded exam. 2. No acute intracranial abnormality identified. 3. Unremarkable CTA of the head and neck. ACT 112: Negative or not required by law. The above report was generated using voice recognition software. It may contain grammatical, syntax or spelling errors. Electronically signed by: Lauro Loyd M.D. 08/03/2023 4:03 PM Head CTA 08/03/23 15:19 CT angio head w con, CT angio neck with con, CT head/brain wo con CLINICAL HISTORY: 53 years-old Male with neuro deficit, acute stroke suspected. Acute strokelike symptoms. Acute right arm weakness with altered mental status and seizure. COMPARISON STUDY: None TECHNIQUE: Unenhanced axial CT scan of the brain is performed. Subsequently, following the IV administration of 118 cc of Optiray, CT angiogram of the head and neck was performed from the aortic arch and the skull apex. Images are reviewed in the axial, sagittal, and coronal planes. 3-D MIPS images are created and assessed. IV contrast was administered without complication. All measurements were obtained according to NASCET criteria. A dose lowering technique was utilized adhering to the principles of ALARA. CT DOSE: 2861.48 mGy.cm FINDINGS: CT BRAIN: There is no acute intracranial hemorrhage, midline shift, hydrocephalus, intracranial mass, territorial ischemia or abnormal extra-axial collections. Limited exam secondary to positioning and motion artifact. No abnormal intra- axial or extra-axial enhancement. Mastoid air cells and middle ear cavities are clear. No calvarial fracture. Mild mucosal thickening of the ethmoid sinuses and nasal turbinates. CT ANGIOGRAM OF THE HEAD AND NECK: Three-vessel morphology of the thoracic aortic arch. Patency of the innominate and image subclavian arteries. The common and internal carotid arteries are widely patent. Tortuosity of the patent internal carotid arteries. The bilateral anterior and middle cerebral arteries are also patent. The vertebrobasilar system and posterior cerebral arteries are widely patent. There is no aneurysm, high-grade stenosis, or proximal branch occlusion identified. Dural sinuses appear patent. Lung apices are clear. No pneumothorax. Unremarkable soft tissues. IMPRESSION: 1. Motion degraded exam. 2. No acute intracranial abnormality identified. 3. Unremarkable CTA of the head and neck. ACT 112: Negative or not required by law. The above report was generated using voice recognition software. It may contain grammatical, syntax or spelling errors. Electronically signed by: Lauro Loyd M.D. 08/03/2023 4:03 PM Neck CTA 08/03/23 15:19 CT angio head w con, CT angio neck with con, CT head/brain wo con CLINICAL HISTORY: 53 years-old Male with neuro deficit, acute stroke suspected. Acute strokelike symptoms. Acute right arm weakness with altered mental status and seizure. COMPARISON STUDY: None TECHNIQUE: Unenhanced axial CT scan of the brain is performed. Subsequently, following the IV administration of 118 cc of Optiray, CT angiogram of the head and neck was performed from the aortic arch and the skull apex. Images are reviewed in the axial, sagittal, and coronal planes. 3-D MIPS images are created and assessed. IV contrast was administered without complication. All measurements were obtained according to NASCET criteria. A dose lowering technique was utilized adhering to the principles of ALARA. CT DOSE: 2861.48 mGy.cm FINDINGS: CT BRAIN: There is no acute intracranial hemorrhage, midline shift, hydrocephalus, intracranial mass, territorial ischemia or abnormal extra-axial collections. Limited exam secondary to positioning and motion artifact. No abnormal intra- axial or extra-axial enhancement. Mastoid air cells and middle ear cavities are clear. No calvarial fracture. Mild mucosal thickening of the ethmoid sinuses and nasal turbinates. CT ANGIOGRAM OF THE HEAD AND NECK: Three-vessel morphology of the thoracic aortic arch. Patency of the innominate and image subclavian arteries. The common and internal carotid arteries are widely patent. Tortuosity of the patent internal carotid arteries. The bilateral anterior and middle cerebral arteries are also patent. The vertebrobasilar system and posterior cerebral arteries are widely patent. There is no aneurysm, high-grade stenosis, or proximal branch occlusion identified. Dural sinuses appear patent. Lung apices are clear. No pneumothorax. Unremarkable soft tissues. IMPRESSION: 1. Motion degraded exam. 2. No acute intracranial abnormality identified. 3. Unremarkable CTA of the head and neck. ACT 112: Negative or not required by law. The above report was generated using voice recognition software. It may contain grammatical, syntax or spelling errors. Electronically signed by: Lauro Loyd M.D. 08/03/2023 4:03 PM RT Ventilator Mngmt (Last Documented) Ventilator Ordered Settings Respiratory Rate 21 08/03/23 17:30 Ventilator - PT Measurements Respiratory Rate 21 Coding Level of Care Code 75139 IN/OBS CONSULT LVL 5,80M Diagnoses Seizure R56.9 Acute alcoholic intoxication without complication F10.920 Complication of substance-induced condition: uncomplicated Acute encephalopathy G93.40 Pacheco's paralysis G83.84 (2) Acute alcohol intoxication Complication of substance-induced condition: uncomplicated Qualified Code(s): F10.920 - Alcohol use, unspecified with intoxication, uncomplicated
--- NOTE | 2023-08-03 18:16 | History & Physical Report ---
Date of Service August 03, 2023 Assessment & Plan (1) Stroke-like symptoms: Plan: Seizure versus stroke, right upper extremity weakness, tonic-clonic activity, left superior gaze deviation Onset of staring spell with right upper extremity weakness for which EMS was called, subsequently with EMS patient had global seizure-like activity and received Versed. While in the ER going to CAT scanner had an episode of dysregulated laughing with left upper gaze deviation. Patient received 2 mg of Ativan with subsequent improvement. No prior history of seizure. Patient is a with PTSD, but no known head injuries or prior seizures. Does drink alcohol and had an alcohol level of 250 on admission, does not use any other substances per family. Is not on any prescription medications. UDS is appropriately positive for benzos after receiving Versed, otherwise negative. CThead and CTA head/neck without acute findings On telestroke evaluation frontotemporal stroke could not be ruled out, and gaze deviation to the upper left with right-sided deficits are potentially consistent with this however on reassessment patient had improved right arm strength and movement. Was sedated following also dose of benzodiazepines and Keppra load. On re/benefits discussion of TNKase family elected to defer thrombolytics. MRI pending Neurology is consulted. Given that presentation could be either seizure with Pacheco's paralysis and confusion or stroke, reasonable to continue current management. Recommend starting Keppra 1000 mg twice daily starting tomorrow morning, may also start aspirin 81 mg daily. Further recommendations based on progression and MRI results. Admitted to ICU, seizure precautions, Ativan on-call (2) Acute alcohol intoxication: Plan: Guarding airway, alcohol level 250.2 on admission. Supportive care at this time (3) LINDA (obstructive sleep apnea): Plan: CPAP nightly Plan DVT prophylaxis: SCDs, pharmacal prophylaxis deferred Disposition: ICU CODE STATUS: Full code Diet: N.p.o. until mentation improves History of Present Illness Primary Care Provider: NO PCP Óscar is a 53-year-old male here for the [employer] game from [place] who was at the game with family standing up when he suddenly stopped talking and was staring off into space, and could not use his right upper extremity. EMS was called, he had not had any tremors/shaking at that time. While in route patient had a reportedly witnessed [place] seizure episode and received Versed. Reportedly had a second episode and route, appeared postictal in the ER and then went was taken to CAT scan had an episode of a unusual laughing like behavior, R sided shaking, and gaze deviation to the upper left. He received 2 additional doses of Ativan; in total prehospital and prior to admission received versed 2mg x2, and lorazepam 1mg x2. He was loaded with Keppra 3,700mg IV while in the ER. Patient presented as a stroke alert. CT-H/CTA-H/N naf. Initially ?area of SAH, this was reviewed with telestroke and radiology by ER, repeat images did not redomonstrate this finding and was thought to be due to streak artifact. As patient presented with initial focal upper extremity deficits patient was evaluated recommended TNKase by teleneurology. At time of ER and hospitalist assessment patient's right upper extremity weakness was improving with minimal residual deficits, although he remained confused. Family is aware that the seizure could cause his presentation of weakness, shaking, Pacheco's paralysis, and subsequent confusion especially combined with benzodiazepines however stroke is within the differential and could have had a frontal stroke leading to his symptoms On risk/benefit discussion which included family and teleneurology family did not wish to pursue TNKase. At time of bedside assessment patient not able to provide collateral due to somnolence/AMS. With voice and sternal rub he does wake up and move his upper extremities bilaterally but falls back asleep and strength and sensation testing is not able to be performed. Medical History: Reviewed Medications: Reviewed Surgical History: Reviewed Family history: Reviewed Allergies: Reviewed Social History: No tobacco or recreational substance use Code Status: Full Allergies Allergy/AdvReac Type Severity Reaction Status Date / Time orange Allergy Hives Verified 08/03/23 16:03 Home Medications Medication Instructions Recorded Confirmed Type No Known Home Medications 08/03/23 08/03/23 History Past Med/Surg History Social History Smoking Status: Unknown if ever smoked Feels Safe at Home: Yes Physical Exam Physical Exam: General: Somnolent, awakens transiently to voice and sternal rub before falling back asleep HEENT: Atraumatic, normocephalic. Pupils equal and reactive to light and accommodation Pulm: CTAB A&P. -wheezes, -rales, -rhonchi. Symmetrical chest rise. No increased work of breathing. No respiratory distress. Cardiac: RRR, -mrg. Radial pulses intact and symmetrical. Abdominal: Nontender, nondistended, soft. BS present. Extremities: Warm, dry. Briefly moves upper extremities bilaterally when awake but does not follow commands and unable to assess strength/sensation at bedside due to cognitive status Results & Data Results & Data Vital Signs (Past 12 Hours) Vital Signs Temp Pulse Pulse Resp BP BP Pulse Ox 08/03/23 17:30 86 21 134/90 97 08/03/23 17:21 87 18 113/81 97 08/03/23 17:10 79 21 97/71 L 98 08/03/23 17:07 86 08/03/23 16:31 90 21 114/87 94 08/03/23 16:10 08/03/23 16:00 87 28 H 108/82 93 08/03/23 15:18 98 H 43 H 127/85 92 08/03/23 15:15 36.9 C 102 H 22 127/85 91 O2 Del Method O2 Flow Rate 08/03/23 17:30 Room Air 100 08/03/23 17:21 Room Air 99 08/03/23 17:10 Room Air 99 08/03/23 17:07 08/03/23 16:31 Nasal Cannula 99 08/03/23 16:10 Nasal Cannula 3 08/03/23 16:00 Nasal Cannula 4 08/03/23 15:18 Room Air 08/03/23 15:15 Room Air PG Care Time/CCT Total # of Minutes Spent Total Time Spent with Patient: Total time spent is greater than 50% in coordination of care (as documented) at patient's floor/unit and/or counseling patient: Coding Level of Care Code 61916 INT INP/OBS CARE 3/75MIN Diagnoses Stroke-like symptoms R29.90 Acute alcoholic intoxication without complication F10.920 Complication of substance-induced condition: uncomplicated LINDA (obstructive sleep apnea) G47.33 (2) Acute alcohol intoxication Complication of substance-induced condition: uncomplicated Qualified Code(s): F10.920 - Alcohol use, unspecified with intoxication, uncomplicated
[2023-08-03 18:41] LABS: Partial Thromboplastin Time 27 Seconds (21-31); Prothrombin Time 10.5 Seconds (9.0-12.0)
[2023-08-03] MEDS: ICU Protocol for HYPERglycemia SCH (20:53)
[2023-08-03] MEDS: LACTATED RINGER'S 1,000 ML IV SCH (20:53)
[2023-08-03] MEDS: LORazepam 2 MG in SYRINGE 1 ML IV PRN (22:59)
--- NOTE | 2023-08-04 07:10 | Electrocardiogram Report ---
Test Reason : Blood Pressure : / mmHG Vent. Rate : 093 BPM Atrial Rate : 093 BPM P-R Int : 148 ms QRS Dur : 090 ms QT Int : 366 ms P-R-T Axes : 037 -37 036 degrees QTc Int : 455 ms Poor data quality, interpretation may be adversely affected Normal sinus rhythm Left axis deviation Nonspecific ST abnormality Abnormal ECG No previous ECGs available Confirmed by Brando Rosenthal ([id number]) on 08/04/2023 7:10:01 AM Referred By: REFERRED SELF Confirmed By:Carl Rosenthal
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
[2023-08-04 09:27] LABS: Basophils # (auto) 0.02 K/uL (0.00-0.20); Basophils % (auto) 0.2 %; Hematocrit (blood only) 44.7 % (42.0-52.0); Hemoglobin 15.1 g/dl (14.0-18.0); Immature Granulocytes # (auto) 0.06 K/uL (0.01-0.20); Immature Granulocytes % (auto) 0.6 %; Lymphocytes # (auto) 0.85 K/uL (1.20-3.40); Lymphocytes % (auto) 8.5 %; Mean Corpuscular Hemoglobin 29.3 pg (25.0-34.0); Mean Corpuscular Hgb Conc 33.8 g/dL (32.0-36.0); Mean Corpuscular Volume 86.6 fL (80.0-100.0); Mean Platelet Volume 9.2 fL (9.4-12.4); Monocytes # (auto) 0.24 K/uL (0.11-0.59); Monocytes % (auto) 2.4 %; Neutrophils # (auto) 8.88 K/uL (1.40-6.50); Neutrophils % (auto) 88.3 %; Platelet Count 329 K/uL (130-400); RDW Coefficient of Variation 13.5 % (11.5-14.5); RDW Standard Deviation 42.4 fL (36.4-46.3); Red Blood Count 5.16 M/uL (4.70-6.10); White Blood Count 10.05 K/ul (4.8-10.8)
[2023-08-04 09:44] LABS: Albumin Level 4.2 gm/dl (3.4-5.0); Bilirubin,Total 0.4 mg/dl (0.2-1.0); Calcium 9.3 mg/dl (8.6-10.3); Potassium 3.9 mmol/L (3.5-5.1)
[2023-08-04 09:50] LABS: Albumin Globulin Ratio 1.5 (0.9-2); BUN Creatinine Ratio 14.6 (10-20); Creatinine Clr Calc Pharmacy 134.2 ml/min; Est GFR (African American) 118.7 ml/min; Est GFR (Non-African American) 102.4 ml/min; Globulin 2.8 gm/dl (2.5-4.0)
[2023-08-04] MEDS: MINI B IV SCH (09:53)
[2023-08-04] MEDS: ASPIRIN 81 MG ECTAB PO SCH (09:53)
[2023-08-04] MEDS: SODIUM CHLOR 0.9% IV SCH (09:53)
[2023-08-04] MEDS: LEVETIRACETAM IV SCH (09:53)
[2023-08-04] MEDS: GADOBUTROL 30ML VIAL IV ONE (11:09)
--- NOTE | 2023-08-04 12:42 | Electroencephalogram ---
EEG Procedure Note Date of Service August 04, 2023 Start / End Times Start Time: 11:49 AM End Time: 12:09 PM Referring Physician Lamine History New onset focal seizure, alcohol intoxication, remote history of TBI Home Medication List Medication Instructions Recorded Confirmed Type No Known Home Medications 08/03/23 08/03/23 History Inpatient Medication List Aspirin (Aspirin 81 Mg Ectab) 81 mg PO DAILY JARON Stop: 09/03/23 08:59 Last Admin: 08/04/23 09:53 Dose: 81 mg Documented By: FRED Lactated Ringer's (Lr) 1,000 mls @ 80 mls/hr IV .[id number] JARON Stop: 09/02/23 19:55 Last Admin: 08/04/23 04:55 Dose: 125 mls/hr Documented By: Infusion: 08/04/23 04:53 Dose: Infused Documented By: Admin: 08/03/23 20:53 Dose: 125 mls/hr Documented By: SHALINI Lorazepam 2 mg/ Syringe 2 mls @ 2 mls/min IV Q5M PRN PRN Reason: seizure Last Admin: 08/03/23 22:59 Dose: 2 mls/min Documented By: SHALINI Levetiracetam 1,000 mg/ Sodium (Chloride) 110 mls @ 420 mls/hr IV Q12H JARON Stop: 09/03/23 08:59 Last Infusion: 08/04/23 10:15 Dose: Infused Documented By: Admin: 08/04/23 09:53 Dose: 420 mls/hr Documented By: FRED Miscellaneous (Icu Protocol For Hyperglycemia) 1 each N/A ACHS [facility] Stop: 08/05/23 20:59 Last Admin: 08/04/23 07:52 Dose: 1 each Documented By: Admin: 08/03/23 20:53 Dose: Not Given Documented By: SHALINI Discontinued Medications Dexamethasone Sodium Phosphate (DexamethasonePf 10 Mg/Ml Vial) 10 mg IV NOW ONE Stop: 08/03/23 16:26 Last Admin: 08/03/23 16:31 Dose: 10 mg Documented By: ASIM Diphenhydramine HCl (Diphenhydramine 50 Mg/Ml Vial) 50 mg IV NOW STA Stop: 08/03/23 16:26 Last Admin: 08/03/23 16:30 Dose: 50 mg Documented By: ASIM Gadobutrol (Gadobutrol 30ml Vial) 10 ml IV ONCE ONE Stop: 08/04/23 11:09 Last Admin: 08/04/23 11:09 Dose: 10 ml Documented By: JULY Sodium Chloride (Nss) 1,000 mls @ 200 mls/hr IV .Q5H JARON Stop: 09/02/23 16:14 Last Infusion: 08/03/23 20:47 Dose: Infused Documented By: Admin: 08/03/23 16:32 Dose: 200 mls/hr Documented By: ASMI Ioversol (Optiray 320 125ml) 118 ml IV ONCE ONE Stop: 08/03/23 15:40 Last Admin: 08/03/23 15:39 Dose: 118 ml Documented By: PETER Levetiracetam (Levetiracetam 500 Mg/5 Ml Vial) 3,700 mg 40 mg/kg (3700 mg) IV NOW STA Stop: 08/03/23 15:47 Last Admin: 08/03/23 15:56 Dose: 3,700 mg Documented By: ASIM Lorazepam (Lorazepam 1 Mg/1 Ml Syr Ed Inj Use) Confirm Administered Dose 1 mg .ROUTE .STK-MED ONE Stop: 08/03/23 15:31 Last Admin: 08/03/23 17:15 Dose: 1 mg Documented By: ASIM Lorazepam (Lorazepam 1 Mg/1 Ml Syr Ed Inj Use) Confirm Administered Dose 1 mg .ROUTE .STK-MED ONE Stop: 08/03/23 15:41 Last Admin: 08/03/23 15:47 Dose: 1 mg Documented By: ASIM Description This is a 21 electrode EEG with a single channel dedicated to limited EKG. The electrodes were placed in accordance with the International 10-20 system. There is a posterior dominant rhythm of 10 to 12 Hz which is symmetrically distributed and attenuates with eye opening. There is a normal anterior to posterior organization. There is a photic following response at various frequencies. Photostimulation does not induce any abnormal paroxysmal activity. Hyperventilation not performed. The frontal beta rhythm is distributed symmetrically. There are intermittent left frontotemporal sharps and polyspikes. Many of these episodes which last for several seconds occur in association with eye blinking, lipsmacking, grimacing, mild patient movement and a faster rate of breathing observed on video. There is periodic symmetric frontal theta slowing. Interpretation This awake/drowsy EEG reveals potential epileptiform abnormalities localizing to the left frontotemporal region. Although the finding could be confounded by movement artifact, a few of these episodes appear to be independent of significant patient motion, and are associated with mild automatisms, as described above, on video. (I corroborated this patient behavior with the electromechanical technologist.) Given this patient's clinical presentation with new onset focal seizures that localize to the left frontotemporal region, the above findings are likely significant and would support a diagnosis of focal onset seizures. Please see today's neurology consult for additional details. [facility] EEG Procedure Codes Indication for Procedure (1) Seizure: Neurology Neurology: [id number] EEG include record awake & drowsy
--- NOTE | 2023-08-04 12:50 | Critical Care Progress Note ---
Date of Service August 04, 2023 Assessment & Plan (1) Seizure: Plan: Reason Critically Ill: 53-year-old male with new onset seizure with postictal Pacheco's paralysis which has resolved and acute alcohol intoxication PLAN: Neuro: Seizure-like activity Pacheco's paralysis and postictal state: Resolved -Neurology consult reviewed -Loaded with Keppra: Continue -MRI completed: Awaiting formal report -EEG completed awaiting formal report CV: Monitor on telemetry Fluids/Renal: ID: No indication for anti-infectives GI/Nutrition: Regular diet as tolerated Heme: DVT prophylaxis: Patient ambulatory Endocrine: ICU hyperglycemia protocol Vascular access: Peripheral IV Code Status: Full code Disposition: Stable for downgrade out of ICU, critical care will sign off (2) Acute alcohol intoxication: (3) Acute encephalopathy: (4) Pacheco's paralysis: Admission and Anticipated Discharge Date Admission Date: August 03, 2023 Subjective Patient feels well reports feeling back to baseline. Physical Exam Physical Exam: General: Alert. nontoxic. Skin: Warm, dry, Head: Atraumatic Ears, nose, mouth and throat: airway patent Cardiovascular: Normal peripheral perfusion Respiratory: no respiratory distress Gastrointestinal: Non distended Musculoskeletal: No deformity Results & Data Results & Data Vital Signs (Past 12 Hours) Vital Signs Temp Pulse Resp BP Pulse Ox Pulse Ox O2 Del Method 08/04/23 12:32 36.4 C L 08/04/23 12:30 93 H 21 92 08/04/23 12:28 135/82 08/04/23 12:28 88 16 97 08/04/23 12:00 99 H 37 H 99 08/04/23 11:30 94 H 19 97 08/04/23 11:26 93 H 19 97 08/04/23 10:00 160/99 H 08/04/23 10:00 97 H 20 95 08/04/23 09:30 105 H 27 H 97 08/04/23 09:00 148/99 H 08/04/23 09:00 96 H 27 H 95 08/04/23 08:30 92 H 22 94 08/04/23 08:00 142/95 H 08/04/23 08:00 92 H 23 93 08/04/23 07:30 91 H 19 94 08/04/23 07:12 Nasal Cannula 08/04/23 07:11 37.0 C 08/04/23 07:00 158/99 H 04/14/24 07:00 91 H 19 96 08/04/23 06:48 91 H 08/04/23 06:45 85 15 99 08/04/23 03:06 93 08/04/23 02:00 78 18 92 08/04/23 02:00 119/70 08/04/23 01:00 116/73 08/04/23 01:00 85 19 92 O2 Del Method O2 Flow Rate O2 Flow Rate 08/04/23 12:32 08/04/23 12:30 08/04/23 12:28 08/04/23 12:28 08/04/23 12:00 08/04/23 11:30 08/04/23 11:26 08/04/23 10:00 08/04/23 10:00 08/04/23 09:30 08/04/23 09:00 08/04/23 09:00 08/04/23 08:30 08/04/23 08:00 08/04/23 08:00 08/04/23 07:30 08/04/23 07:12 2 08/04/23 07:11 08/04/23 07:00 08/04/23 07:00 08/04/23 06:48 08/04/23 06:45 08/04/23 03:06 Nasal Cannula 2 08/04/23 02:00 08/04/23 02:00 08/04/23 01:00 08/04/23 01:00 Critical Care Results & Data Vital Signs (Past 12 Hours) Vital Signs Temp Pulse Resp BP Pulse Ox Pulse Ox O2 Del Method 08/04/23 12:32 36.4 C L 08/04/23 12:30 93 H 21 92 08/04/23 12:28 135/82 08/04/23 12:28 88 16 97 08/04/23 12:00 99 H 37 H 99 08/04/23 11:30 94 H 19 97 08/04/23 11:26 93 H 19 97 08/04/23 10:00 160/99 H 08/04/23 10:00 97 H 20 95 08/04/23 09:30 105 H 27 H 97 08/04/23 09:00 148/99 H 08/04/23 09:00 96 H 27 H 95 04/14/24 08:30 92 H 22 94 08/04/23 08:00 142/95 H 08/04/23 08:00 92 H 23 93 08/04/23 07:30 91 H 19 94 08/04/23 07:12 Nasal Cannula 08/04/23 07:11 37.0 C 08/04/23 07:00 158/99 H 08/04/23 07:00 91 H 19 96 08/04/23 06:48 91 H 08/04/23 06:45 85 15 99 08/04/23 03:06 93 08/04/23 02:00 78 18 92 08/04/23 02:00 119/70 08/04/23 01:00 116/73 08/04/23 01:00 85 19 92 O2 Del Method O2 Flow Rate O2 Flow Rate 08/04/23 12:32 08/04/23 12:30 08/04/23 12:28 08/04/23 12:28 08/04/23 12:00 08/04/23 11:30 08/04/23 11:26 08/04/23 10:00 08/04/23 10:00 08/04/23 09:30 08/04/23 09:00 08/04/23 09:00 08/04/23 08:30 08/04/23 08:00 08/04/23 08:00 08/04/23 07:30 08/04/23 07:12 2 08/04/23 07:11 08/04/23 07:00 08/04/23 07:00 08/04/23 06:48 08/04/23 06:45 08/04/23 03:06 Nasal Cannula 2 08/04/23 02:00 08/04/23 02:00 08/04/23 01:00 08/04/23 01:00 Lab & Micro Results (Past 24 Hours) RBC 5.16 M/uL (4.70-6.10) 08/04/23 WBC 10.05 K/ul (4.8-10.8) 08/04/23 Hgb 15.1 g/dl (14.0-18.0) 08/04/23 Hct 44.7 % (42.0-52.0) 08/04/23 MCV 86.6 fL (80.0-100.0) 08/04/23 MCH 29.3 pg (25.0-34.0) 08/04/23 MCHC 33.8 g/dL (32.0-36.0) 08/04/23 RDW Standard Deviation 42.4 fL (36.4-46.3) 08/04/23 RDW Coefficient of Variation 13.5 % (11.5-14.5) 08/04/23 Plt Count 329 K/uL (130-400) 08/04/23 MPV 9.2 fL (9.4-12.4) L 08/04/23 Neutrophils (%) (Auto) 88.3 % 08/04/23 Lymphocytes (%) (Auto) 8.5 % 08/04/23 Monocytes # (Auto) 0.24 K/uL (0.11-0.59) 08/04/23 Eosinophils # (Auto) 0.00 K/uL (0.00-0.50) 08/04/23 Immature Granulocyte % (Auto) 0.6 % 08/04/23 Neutrophils # (Auto) 8.88 K/uL (1.40-6.50) H 08/04/23 Lymphocytes # (Auto) 0.85 K/uL (1.20-3.40) L 08/04/23 Monocytes # (Auto) 0.24 K/uL (0.11-0.59) 08/04/23 Eosinophils # (Auto) 0.00 K/uL (0.00-0.50) 08/04/23 Basophils # (Auto) 0.02 K/uL (0.00-0.20) 08/04/23 Immature Granulocyte # (Auto) 0.06 K/uL (0.01-0.20) 4 Na 140 mmol/L (136-145) 08/04/23 K 3.9 mmol/L (3.5-5.1) 08/04/23 Cl 107 mmol/L (98-107) 08/04/23 CO2 24 mmol/L (21-32) 08/04/23 Anion Gap 9 (3-11) 08/04/23 BUN 12 mg/dl (6-23) 08/04/23 Creatinine 0.82 mg/dl (0.6-1.4) 08/04/23 Estimated GFR ( Amer) 118.7 ml/min 08/04/23 Estimated GFR (Non-Af Amer) 102.4 ml/min 08/04/23 BUN/Creatinine Ratio 14.6 (10-20) 08/04/23 Glu 135 mg/dl (70-99(Fasting)) H 08/04/23 Ca 9.3 mg/dl (8.6-10.3) 08/04/23 Total Bilirubin 0.4 mg/dl (0.2-1.0) 08/04/23 AST 14 U/L (13-39) 08/04/23 ALT 22 U/L (7-52) 08/04/23 Alkaline Phosphatase 84 U/L (34-104) 08/04/23 TP 7.0 gm/dl (6.0-8.3) 08/04/23 Albumin 4.2 gm/dl (3.4-5.0) 08/04/23 Globulin 2.8 gm/dl (2.5-4.0) 08/04/23 Albumin/Globulin Ratio 1.5 (0.9-2) 08/04/23 Mg 2.3 mg/dl (1.7-2.4) 08/03/23 15:20 Calcium Level 9.3 mg/dl (8.6-10.3) 08/04/23 09:14 Prothromb Time International Ratio 1.0 (0.9-1.1) 08/03/23 17:2 0 Diagnostic Findings (Past 24 Hours) Head CT 08/03/23 15:19 CT angio head w con, CT angio neck with con, CT head/brain wo con CLINICAL HISTORY: 53 years-old Male with neuro deficit, acute stroke suspected. Acute strokelike symptoms. Acute right arm weakness with altered mental status and seizure. COMPARISON STUDY: None TECHNIQUE: Unenhanced axial CT scan of the brain is performed. Subsequently, following the IV administration of 118 cc of Optiray, CT angiogram of the head and neck was performed from the aortic arch and the skull apex. Images are reviewed in the axial, sagittal, and coronal planes. 3-D MIPS images are created and assessed. IV contrast was administered without complication. All measurements were obtained according to NASCET criteria. A dose lowering technique was utilized adhering to the principles of ALARA. CT DOSE: 2861.48 mGy.cm FINDINGS: CT BRAIN: There is no acute intracranial hemorrhage, midline shift, hydrocephalus, intracranial mass, territorial ischemia or abnormal extra-axial collections. Limited exam secondary to positioning and motion artifact. No abnormal intra- axial or extra-axial enhancement. Mastoid air cells and middle ear cavities are clear. No calvarial fracture. Mild mucosal thickening of the ethmoid sinuses and nasal turbinates. CT ANGIOGRAM OF THE HEAD AND NECK: Three-vessel morphology of the thoracic aortic arch. Patency of the innominate and image subclavian arteries. The common and internal carotid arteries are widely patent. Tortuosity of the patent internal carotid arteries. The bilateral anterior and middle cerebral arteries are also patent. The vertebrobasilar system and posterior cerebral arteries are widely patent. There is no aneurysm, high-grade stenosis, or proximal branch occlusion identified. Dural sinuses appear patent. Lung apices are clear. No pneumothorax. Unremarkable soft tissues. IMPRESSION: 1. Motion degraded exam. 2. No acute intracranial abnormality identified. 3. Unremarkable CTA of the head and neck. ACT 112: Negative or not required by law. The above report was generated using voice recognition software. It may contain grammatical, syntax or spelling errors. Electronically signed by: Lauro Loyd M.D. 08/03/2023 4:03 PM Head CTA 08/03/23 15:19 CT angio head w con, CT angio neck with con, CT head/brain wo con CLINICAL HISTORY: 53 years-old Male with neuro deficit, acute stroke suspected. Acute strokelike symptoms. Acute right arm weakness with altered mental status and seizure. COMPARISON STUDY: None TECHNIQUE: Unenhanced axial CT scan of the brain is performed. Subsequently, following the IV administration of 118 cc of Optiray, CT angiogram of the head and neck was performed from the aortic arch and the skull apex. Images are reviewed in the axial, sagittal, and coronal planes. 3-D MIPS images are created and assessed. IV contrast was administered without complication. All measurements were obtained according to NASCET criteria. A dose lowering technique was utilized adhering to the principles of ALARA. CT DOSE: 2861.48 mGy.cm FINDINGS: CT BRAIN: There is no acute intracranial hemorrhage, midline shift, hydrocephalus, intracranial mass, territorial ischemia or abnormal extra-axial collections. Limited exam secondary to positioning and motion artifact. No abnormal intra- axial or extra-axial enhancement. Mastoid air cells and middle ear cavities are clear. No calvarial fracture. Mild mucosal thickening of the ethmoid sinuses and nasal turbinates. CT ANGIOGRAM OF THE HEAD AND NECK: Three-vessel morphology of the thoracic aortic arch. Patency of the innominate and image subclavian arteries. The common and internal carotid arteries are widely patent. Tortuosity of the patent internal carotid arteries. The bilateral anterior and middle cerebral arteries are also patent. The vertebrobasilar system and posterior cerebral arteries are widely patent. There is no aneurysm, high-grade stenosis, or proximal branch occlusion identified. Dural sinuses appear patent. Lung apices are clear. No pneumothorax. Unremarkable soft tissues. IMPRESSION: 1. Motion degraded exam. 2. No acute intracranial abnormality identified. 3. Unremarkable CTA of the head and neck. ACT 112: Negative or not required by law. The above report was generated using voice recognition software. It may contain grammatical, syntax or spelling errors. Electronically signed by: Lauro Loyd M.D. 08/03/2023 4:03 PM Neck CTA 08/03/23 15:19 CT angio head w con, CT angio neck with con, CT head/brain wo con CLINICAL HISTORY: 53 years-old Male with neuro deficit, acute stroke suspected. Acute strokelike symptoms. Acute right arm weakness with altered mental status and seizure. COMPARISON STUDY: None TECHNIQUE: Unenhanced axial CT scan of the brain is performed. Subsequently, following the IV administration of 118 cc of Optiray, CT angiogram of the head and neck was performed from the aortic arch and the skull apex. Images are reviewed in the axial, sagittal, and coronal planes. 3-D MIPS images are created and assessed. IV contrast was administered without complication. All measurements were obtained according to NASCET criteria. A dose lowering technique was utilized adhering to the principles of ALARA. CT DOSE: 2861.48 mGy.cm FINDINGS: CT BRAIN: There is no acute intracranial hemorrhage, midline shift, hydrocephalus, intracranial mass, territorial ischemia or abnormal extra-axial collections. Limited exam secondary to positioning and motion artifact. No abnormal intra- axial or extra-axial enhancement. Mastoid air cells and middle ear cavities are clear. No calvarial fracture. Mild mucosal thickening of the ethmoid sinuses and nasal turbinates. CT ANGIOGRAM OF THE HEAD AND NECK: Three-vessel morphology of the thoracic aortic arch. Patency of the innominate and image subclavian arteries. The common and internal carotid arteries are widely patent. Tortuosity of the patent internal carotid arteries. The bilateral anterior and middle cerebral arteries are also patent. The vertebrobasilar system and posterior cerebral arteries are widely patent. There is no aneurysm, high-grade stenosis, or proximal branch occlusion identified. Dural sinuses appear patent. Lung apices are clear. No pneumothorax. Unremarkable soft tissues. IMPRESSION: 1. Motion degraded exam. 2. No acute intracranial abnormality identified. 3. Unremarkable CTA of the head and neck. ACT 112: Negative or not required by law. The above report was generated using voice recognition software. It may contain grammatical, syntax or spelling errors. Electronically signed by: Lauro Loyd M.D. 08/03/2023 4:03 PM I & O Totals 24 Hours 08/03/23 08/04/23 08/05/23 06:59 06:59 06:59 Intake Total 1850 / 1850 110 / 110 Output Total 1920 / 1920 275 / 275 Balance -70 / -70 -165 / -165 Cumulative 08/03/23 15:01 thru 08/04/23 12:36 Intake Total 1960 Output Total 2195 Balance -235 RT Ventilator Mngmt (Last Documented) Ventilator Ordered Settings Respiratory Rate 21 08/04/23 12:30 Ventilator - PT Measurements Respiratory Rate 21 Coding Level of Care Code 60463 SUB INP/OBS CARE 1/25MIN Diagnoses Seizure R56.9 Acute alcoholic intoxication without complication F10.929 Acute encephalopathy G93.40 Pacheco's paralysis G83.84
--- NOTE | 2023-08-04 13:31 | Magnetic Resonance Report ---
MR venography head wo con HISTORY: 53 years-old Male encephalopathy with siezure acute strokelike symptoms/seizure COMPARISON: Brain MRI of same day TECHNIQUE: MR venogram was obtained without contrast. FINDINGS: Normal appearance of the cerebral venous sinuses. No cerebral venous sinus thrombosis. The left trans verse sinus is asymmetrically smaller compared to the right which is likely developmental. IMPRESSION: Unremarkable exam. ACT 112: Negative or not required by law. The above report was generated using voice recognition software. It may contain grammatical, syntax o r spelling errors. Electronically signed by: Lauro Loyd M.D. 08/04/2023 1:28 PM
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
--- NOTE | 2023-08-04 19:37 | Magnetic Resonance Report ---
MR brain seizure wo/w con HISTORY: 53 years-old Male new onset focal seizure acute strokelike symptoms/seizure COMPARISON: Head CT 08/03/2023 TECHNIQUE: Multiplanar multisequence MRI of the brain was obtained with and without IV contrast. FINDINGS: There is no restricted diffusion. Midline structures are unremarkable. No acute intracranial hemorrha ge, midline shift, abnormal extra-axial collection, hydrocephalus or intra-axial mass. The volume and signal characteristics of the brain parenchyma are within normal limits for patient age. A few subce ntimeter ill-defined T2/FLAIR hyperintense foci within the subcortical white matter of the frontal lo bes, likely unremarkable appearance of the medial temporal lobes. No evidence of mesial temporal scle rosis, acute seizure focus, right matter heterotopia or cortical dysplasia. Cerebral venous sinuses and major arterial flow voids appear patent. Skull, orbits and soft tissues a re unremarkable. No abnormal enhancement. IMPRESSION: 1. No acute intracranial abnormality. No acute or subacute infarct. 2. No acute seizure focus or evidence of mesial temporal sclerosis. 3. No abnormal enhancement. ACT 112: Negative or not required by law. The above report was generated using voice recognition software. It may contain grammatical, syntax o r spelling errors. Electronically signed by: Lauro Loyd M.D. 08/04/2023 7:36 PM
[2023-08-05 07:49] LABS: Basophils # (auto) 0.02 K/uL (0.00-0.20); Basophils % (auto) 0.3 %; Eosinophils # (auto) 0.01 K/uL (0.00-0.50); Eosinophils % (auto) 0.1 %; Hematocrit (blood only) 39.5 % (42.0-52.0); Hemoglobin 13.3 g/dl (14.0-18.0); Immature Granulocytes # (auto) 0.04 K/uL (0.01-0.20); Immature Granulocytes % (auto) 0.5 %; Lymphocytes # (auto) 1.55 K/uL (1.20-3.40); Lymphocytes % (auto) 19.5 %; Mean Corpuscular Hemoglobin 29.1 pg (25.0-34.0); Mean Corpuscular Hgb Conc 33.7 g/dL (32.0-36.0); Mean Corpuscular Volume 86.4 fL (80.0-100.0); Mean Platelet Volume 9.4 fL (9.4-12.4); Monocytes # (auto) 0.52 K/uL (0.11-0.59); Monocytes % (auto) 6.5 %; Neutrophils # (auto) 5.82 K/uL (1.40-6.50); Neutrophils % (auto) 73.1 %; Platelet Count 280 K/uL (130-400); RDW Coefficient of Variation 13.5 % (11.5-14.5); RDW Standard Deviation 42.1 fL (36.4-46.3); Red Blood Count 4.57 M/uL (4.70-6.10); White Blood Count 7.96 K/ul (4.8-10.8)
[2023-08-05 08:08] LABS: BUN Creatinine Ratio 19.6 (10-20); Calcium 8.8 mg/dl (8.6-10.3); Creatinine Clr Calc Pharmacy 111.8 ml/min; Est GFR (African American) 104.3 ml/min; Potassium 3.7 mmol/L (3.5-5.1)
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
[2023-08-06 18:12] LABS: 7-Aminoclonaz, Confirm NEGATIVE ng/mL (<25); Hydro-Alp Ur, GC/MS NEGATIVE ng/mL (<25); Hydroxyethylflurazepam, Conf NEGATIVE ng/mL (<50); Hydroxymidazolam Ur, GC/MS 282 ng/mL (<50); Hydroxytriazolam NEGATIVE ng/mL (<50); Lorazepam, Ur GC/MS NEGATIVE ng/mL (<50); Nordiazepam, Confirm NEGATIVE ng/mL (<50); Oxazepam Ur, GC/MS NEGATIVE ng/mL (<50); Temazepam, Confirm NEGATIVE ng/mL (<50)
== END 2023-08-05 16:36 | disposition home or self-care (01) | DRG 101 ==
LOC: ED 15:08 → SUATTDRO 18:02 → 1E 18:02 → 2W 08-04 18:35